=== PATIENT | male | born 1980 | race Two or more races ===

== ENCOUNTER 2022-03-14 08:15 | Emergency (ER) | payer OTHER ==
[2022-03-14 09:45] LABS: HEMOGLOBIN 13.6 gm/dl (14.0-17.5); RED BLOOD COUNT 6.04 M/UL (4.20-5.50); WHITE BLOOD COUNT 6.2 K/UL (4.5-11.0)
[2022-03-14 09:56] LABS: BUN/CREATININE RATIO 28 (0-10)
[2022-03-14] MEDS ORDERED: ZOFRAN 4 MG TAB4 MG PO (12:48)
== END 2022-03-14 13:26 | disposition home or self-care (01) ==
LOC: ER1 08:15
PROVIDERS: Physician Assistant Medical
DX: R10.9 Unspecified abdominal pain (principal); R11.0 Nausea; I10 Essential (primary) hypertension
CPT/HCPCS: 71045; 80053; 81001; 82150; 82550; 82553; 83605; 83690; 84484; 85025; 93005; 99285; Q9967